=== PATIENT | female | born 1955 | race African-American/Black ===

== ENCOUNTER → 2019-10-29 | Outpatient (CLI) | payer OTHER | LOC: HYPER 13:28 | DX: T81.89XA Other complications of procedures, not elsewhere classified, initial encounter (principal); S70.01XA Contusion of right hip, initial encounter; R60.0 Localized edema; E11.9 Type 2 diabetes mellitus without complications; E66.01 Morbid (severe) obesity due to excess calories; G47.00 Insomnia, unspecified; I10 Essential (primary) hypertension; J45.909 Unspecified asthma, uncomplicated; M19.90 Unspecified osteoarthritis, unspecified site; M10.9 Gout, unspecified; F41.9 Anxiety disorder, unspecified; F32.9 Major depressive disorder, single episode, unspecified; F17.290 Nicotine dependence, other tobacco product, uncomplicated; Z98.890 Other specified postprocedural states; Z79.82 Long term (current) use of aspirin; Z68.38 Body mass index [BMI] 38.0-38.9, adult; Y92.89 Other specified places as the place of occurrence of the external cause; Y83.8 Other surgical procedures as the cause of abnormal reaction of the patient, or of later complication, without mention of misadventure at the time of the procedure ==

== ENCOUNTER → 2019-10-29 | Outpatient (CLI) | payer OTHER | LOC: SJCVCIMAG 14:12 | DX: L02.415 Cutaneous abscess of right lower limb (principal) ==

== ENCOUNTER → 2019-11-04 | Outpatient (CLI) | payer OTHER | LOC: HYPER 12:01 | DX: T81.89XD Other complications of procedures, not elsewhere classified, subsequent encounter (principal); S70.01XD Contusion of right hip, subsequent encounter; L84 Corns and callosities; I10 Essential (primary) hypertension; E11.9 Type 2 diabetes mellitus without complications; K21.9 Gastro-esophageal reflux disease without esophagitis; J45.909 Unspecified asthma, uncomplicated; G47.00 Insomnia, unspecified; R60.0 Localized edema; R41.3 Other amnesia; M19.90 Unspecified osteoarthritis, unspecified site; M10.9 Gout, unspecified; F32.9 Major depressive disorder, single episode, unspecified; F17.290 Nicotine dependence, other tobacco product, uncomplicated; F41.9 Anxiety disorder, unspecified; Z98.890 Other specified postprocedural states; Z79.82 Long term (current) use of aspirin; X58.XXXD Exposure to other specified factors, subsequent encounter; Y83.8 Other surgical procedures as the cause of abnormal reaction of the patient, or of later complication, without mention of misadventure at the time of the procedure ==

== ENCOUNTER → 2019-11-18 | Outpatient (CLI) | payer OTHER | LOC: HYPER 13:36 | PROVIDERS: ATTEND Emergency Medicine Emergency Medical Services | DX: T81.89XD Other complications of procedures, not elsewhere classified, subsequent encounter (principal); L02.415 Cutaneous abscess of right lower limb; S70.01XD Contusion of right hip, subsequent encounter; L84 Corns and callosities; R60.0 Localized edema; E11.9 Type 2 diabetes mellitus without complications; I10 Essential (primary) hypertension; M19.90 Unspecified osteoarthritis, unspecified site; M10.9 Gout, unspecified; J45.909 Unspecified asthma, uncomplicated; G47.00 Insomnia, unspecified; E66.9 Obesity, unspecified; F17.200 Nicotine dependence, unspecified, uncomplicated; F41.9 Anxiety disorder, unspecified; F32.9 Major depressive disorder, single episode, unspecified; Z79.82 Long term (current) use of aspirin; Z68.38 Body mass index [BMI] 38.0-38.9, adult; Z98.51 Tubal ligation status; Y83.8 Other surgical procedures as the cause of abnormal reaction of the patient, or of later complication, without mention of misadventure at the time of the procedure; X58.XXXD Exposure to other specified factors, subsequent encounter ==

== ENCOUNTER → 2019-12-02 | Outpatient (CLI) | payer OTHER | LOC: HYPER 09:52 | PROVIDERS: ATTEND Emergency Medicine Emergency Medical Services | DX: T81.89XD Other complications of procedures, not elsewhere classified, subsequent encounter (principal); S70.01XD Contusion of right hip, subsequent encounter; R60.0 Localized edema; E66.9 Obesity, unspecified; G47.00 Insomnia, unspecified; I10 Essential (primary) hypertension; J45.909 Unspecified asthma, uncomplicated; K21.9 Gastro-esophageal reflux disease without esophagitis; M19.90 Unspecified osteoarthritis, unspecified site; M10.9 Gout, unspecified; F41.9 Anxiety disorder, unspecified; F17.290 Nicotine dependence, other tobacco product, uncomplicated; F32.9 Major depressive disorder, single episode, unspecified; Z68.38 Body mass index [BMI] 38.0-38.9, adult; Z98.890 Other specified postprocedural states; Z79.82 Long term (current) use of aspirin; Y83.8 Other surgical procedures as the cause of abnormal reaction of the patient, or of later complication, without mention of misadventure at the time of the procedure ==

== ENCOUNTER → 2019-12-09 | Outpatient (CLI) | payer OTHER | LOC: HYPER 11:06 | PROVIDERS: ATTEND Emergency Medicine | DX: T81.89XD Other complications of procedures, not elsewhere classified, subsequent encounter (principal); S70.01XD Contusion of right hip, subsequent encounter; R60.0 Localized edema; I10 Essential (primary) hypertension; K21.9 Gastro-esophageal reflux disease without esophagitis; J45.909 Unspecified asthma, uncomplicated; G47.00 Insomnia, unspecified; E66.01 Morbid (severe) obesity due to excess calories; M10.9 Gout, unspecified; M19.90 Unspecified osteoarthritis, unspecified site; F32.9 Major depressive disorder, single episode, unspecified; Z68.38 Body mass index [BMI] 38.0-38.9, adult; Z98.890 Other specified postprocedural states; Z79.82 Long term (current) use of aspirin; F17.200 Nicotine dependence, unspecified, uncomplicated; X58.XXXD Exposure to other specified factors, subsequent encounter; Y83.8 Other surgical procedures as the cause of abnormal reaction of the patient, or of later complication, without mention of misadventure at the time of the procedure ==

== ENCOUNTER → 2019-12-24 | Outpatient (CLI) | payer OTHER | LOC: HYPER 12-16 16:21 | PROVIDERS: ATTEND Emergency Medicine | DX: T81.89XD Other complications of procedures, not elsewhere classified, subsequent encounter (principal); S70.01XD Contusion of right hip, subsequent encounter; R60.0 Localized edema; E11.9 Type 2 diabetes mellitus without complications; E66.01 Morbid (severe) obesity due to excess calories; I10 Essential (primary) hypertension; J45.909 Unspecified asthma, uncomplicated; K21.9 Gastro-esophageal reflux disease without esophagitis; M19.90 Unspecified osteoarthritis, unspecified site; M10.9 Gout, unspecified; F41.9 Anxiety disorder, unspecified; F32.9 Major depressive disorder, single episode, unspecified; F17.290 Nicotine dependence, other tobacco product, uncomplicated; F17.200 Nicotine dependence, unspecified, uncomplicated; Z68.38 Body mass index [BMI] 38.0-38.9, adult; Z79.82 Long term (current) use of aspirin; Z98.890 Other specified postprocedural states; Y83.8 Other surgical procedures as the cause of abnormal reaction of the patient, or of later complication, without mention of misadventure at the time of the procedure ==

== ENCOUNTER → 2019-12-30 | Outpatient (CLI) | payer OTHER | LOC: HYPER 10:02 | PROVIDERS: ATTEND Emergency Medicine | DX: T81.89XD Other complications of procedures, not elsewhere classified, subsequent encounter (principal); S70.01XD Contusion of right hip, subsequent encounter; R60.0 Localized edema; E66.01 Morbid (severe) obesity due to excess calories; E11.9 Type 2 diabetes mellitus without complications; I10 Essential (primary) hypertension; J45.909 Unspecified asthma, uncomplicated; K21.9 Gastro-esophageal reflux disease without esophagitis; M19.90 Unspecified osteoarthritis, unspecified site; M10.9 Gout, unspecified; F41.9 Anxiety disorder, unspecified; F17.290 Nicotine dependence, other tobacco product, uncomplicated; F32.9 Major depressive disorder, single episode, unspecified; Z68.38 Body mass index [BMI] 38.0-38.9, adult; Z98.890 Other specified postprocedural states; Z79.82 Long term (current) use of aspirin; Y83.8 Other surgical procedures as the cause of abnormal reaction of the patient, or of later complication, without mention of misadventure at the time of the procedure ==

== ENCOUNTER → 2020-01-08 | Outpatient (CLI) | payer OTHER | LOC: HYPER 10:49 | PROVIDERS: ATTEND Emergency Medicine Emergency Medical Services | DX: T81.89XD Other complications of procedures, not elsewhere classified, subsequent encounter (principal); S70.01XD Contusion of right hip, subsequent encounter; R60.0 Localized edema; I10 Essential (primary) hypertension; M19.90 Unspecified osteoarthritis, unspecified site; M10.9 Gout, unspecified; J45.909 Unspecified asthma, uncomplicated; G47.00 Insomnia, unspecified; E66.01 Morbid (severe) obesity due to excess calories; F41.9 Anxiety disorder, unspecified; F32.9 Major depressive disorder, single episode, unspecified; F17.290 Nicotine dependence, other tobacco product, uncomplicated; Z68.38 Body mass index [BMI] 38.0-38.9, adult; Z79.82 Long term (current) use of aspirin; X58.XXXD Exposure to other specified factors, subsequent encounter; Y83.8 Other surgical procedures as the cause of abnormal reaction of the patient, or of later complication, without mention of misadventure at the time of the procedure ==

== ENCOUNTER → 2020-01-13 | Outpatient (CLI) | payer OTHER | LOC: HYPER 10:33 | PROVIDERS: ATTEND Emergency Medicine Emergency Medical Services | DX: T81.89XD Other complications of procedures, not elsewhere classified, subsequent encounter (principal); L02.415 Cutaneous abscess of right lower limb; S70.01XD Contusion of right hip, subsequent encounter; L98.492 Non-pressure chronic ulcer of skin of other sites with fat layer exposed; R60.0 Localized edema; I10 Essential (primary) hypertension; E66.01 Morbid (severe) obesity due to excess calories; G47.00 Insomnia, unspecified; J45.909 Unspecified asthma, uncomplicated; M19.90 Unspecified osteoarthritis, unspecified site; M10.9 Gout, unspecified; F41.9 Anxiety disorder, unspecified; F32.9 Major depressive disorder, single episode, unspecified; F17.290 Nicotine dependence, other tobacco product, uncomplicated; Z68.38 Body mass index [BMI] 38.0-38.9, adult; Z79.82 Long term (current) use of aspirin; X58.XXXD Exposure to other specified factors, subsequent encounter; Y83.8 Other surgical procedures as the cause of abnormal reaction of the patient, or of later complication, without mention of misadventure at the time of the procedure ==

== ENCOUNTER → 2020-01-27 | Outpatient (CLI) | payer OTHER | LOC: HYPER 10:37 | PROVIDERS: ATTEND Emergency Medicine | DX: T81.89XD Other complications of procedures, not elsewhere classified, subsequent encounter (principal); S70.01XD Contusion of right hip, subsequent encounter; E11.622 Type 2 diabetes mellitus with other skin ulcer; L98.492 Non-pressure chronic ulcer of skin of other sites with fat layer exposed; E66.01 Morbid (severe) obesity due to excess calories; R60.0 Localized edema; I10 Essential (primary) hypertension; G47.00 Insomnia, unspecified; J45.909 Unspecified asthma, uncomplicated; K21.9 Gastro-esophageal reflux disease without esophagitis; M19.90 Unspecified osteoarthritis, unspecified site; M10.9 Gout, unspecified; F17.200 Nicotine dependence, unspecified, uncomplicated; F17.290 Nicotine dependence, other tobacco product, uncomplicated; F41.9 Anxiety disorder, unspecified; F32.9 Major depressive disorder, single episode, unspecified; Z98.890 Other specified postprocedural states; Z79.82 Long term (current) use of aspirin; Z68.38 Body mass index [BMI] 38.0-38.9, adult; Y83.8 Other surgical procedures as the cause of abnormal reaction of the patient, or of later complication, without mention of misadventure at the time of the procedure ==

== ENCOUNTER → 2020-03-01 | Outpatient (CLI) | payer OTHER | LOC: HYPER 10:40 | PROVIDERS: ATTEND Emergency Medicine | DX: T81.89XD Other complications of procedures, not elsewhere classified, subsequent encounter (principal); E11.622 Type 2 diabetes mellitus with other skin ulcer; L98.492 Non-pressure chronic ulcer of skin of other sites with fat layer exposed; S70.01XD Contusion of right hip, subsequent encounter; L02.415 Cutaneous abscess of right lower limb; R60.0 Localized edema; L84 Corns and callosities; I10 Essential (primary) hypertension; M19.90 Unspecified osteoarthritis, unspecified site; M10.9 Gout, unspecified; J45.909 Unspecified asthma, uncomplicated; E66.01 Morbid (severe) obesity due to excess calories; G47.00 Insomnia, unspecified; F41.9 Anxiety disorder, unspecified; F32.9 Major depressive disorder, single episode, unspecified; F17.290 Nicotine dependence, other tobacco product, uncomplicated; Z79.82 Long term (current) use of aspirin; Z98.51 Tubal ligation status; Y83.8 Other surgical procedures as the cause of abnormal reaction of the patient, or of later complication, without mention of misadventure at the time of the procedure ==

== ENCOUNTER → 2020-03-01 | Outpatient (CLI) | payer OTHER | LOC: SJCVCIMAG 12:27 | PROVIDERS: ATTEND Emergency Medicine | DX: L02.415 Cutaneous abscess of right lower limb (principal) ==

== ENCOUNTER → 2020-03-23 | Outpatient (CLI) | payer OTHER | LOC: HYPER 09:40 | PROVIDERS: ATTEND Emergency Medicine | DX: T81.89XD Other complications of procedures, not elsewhere classified, subsequent encounter (principal); L02.415 Cutaneous abscess of right lower limb; E11.622 Type 2 diabetes mellitus with other skin ulcer; L98.492 Non-pressure chronic ulcer of skin of other sites with fat layer exposed; S70.01XD Contusion of right hip, subsequent encounter; R60.0 Localized edema; E66.01 Morbid (severe) obesity due to excess calories; I10 Essential (primary) hypertension; J45.909 Unspecified asthma, uncomplicated; M19.90 Unspecified osteoarthritis, unspecified site; M10.9 Gout, unspecified; F17.200 Nicotine dependence, unspecified, uncomplicated; K21.9 Gastro-esophageal reflux disease without esophagitis; F17.290 Nicotine dependence, other tobacco product, uncomplicated; F41.9 Anxiety disorder, unspecified; F32.9 Major depressive disorder, single episode, unspecified; Z98.890 Other specified postprocedural states; Z79.82 Long term (current) use of aspirin; Z68.38 Body mass index [BMI] 38.0-38.9, adult; X58.XXXD Exposure to other specified factors, subsequent encounter ==

== ENCOUNTER 2021-03-20 15:11 | Inpatient (IN) | payer OTHER ==
[~2021-03-20] VITALS: Ht 167.6 cm; Wt 97.5 kg
--- NOTE | ~2021-03-20 | EMS ---
[address] [address] EMS Patient Care Report Name: HAYDEN MCGRAW Room #: 238-P ADM IN M.R.#: [id number] Admission: 03/20/21 Attend Phys: Tom Calderon MD Discharge: Date of : 57 Report #: [id number] THIS REPORT FOR: //name// Report Transmitted: 03/20/2021 19:51 EMS Care Summary [place], [place] Incident [id number] @ 03/20/2021 14:18 Incident Location [address] [place] [id number] Patient HAYDEN MCGRAW Female, 65 Years 1955 Patient Address [address] [place] [id number] Patient History Diabetes,Hypertension (HTN),Hyperlipidemia, Patient Medications Hawks, Morphine, Chief Complaint cardiac arrest Disposition Transported [place] Dispatch Reason Cardiac Arrest/ Transported To [facility] Narrative pt was last seen at 10 AM. Family had been trying to contact her since 11AM and finally went over to her home. They found pt in bed pulseless and non breathing. When Pumper arrives, family is attempting CPR while pt is in bed. Pt was reported to have not been feeling well since Saturday 03/17 and was told [address] [address] EMS Patient Care Report Name: HAYDEN MCGRAW Room #: 238-P [facility] IN [facility]#: [id number] Admission: 03/20/21 Attend Phys: Tom Calderon MD Discharge: Date of : 57 Report #: [id number] to go get a Covid test. When Pumper arrives, they pull pt out to living room and begin CPR. Pumper Medic has confirmed pt is in asystole on EKG, she has no resp effort. Pt body is warm, no obv signs of ledivity. They are doing CCC and bagging w/ BVM and 100% 02. iGel inserted and pt being placed on Zoll CPR board, shortly after our arrival on scene. IO obtained and ALS protocol followed. Tx as listed in flow chart. eCO2 originally @61% begins to decrease for unk reasons. Pt intubated by Car 120 Ivory, tube confirmed and eCO2 back to 52%. After 7 doses of Epi, reassessed and pt is in PEA rate 43 w/ eCO2 45. pt to ciera parts remover and cot, transport emergency w/ CPR being performed and continued tx enroute. Pt arrives at ER w/ no pulse or resp effort, CPR in progress, EKG PEA. Report to staff Initial Vitals @14:36P: 159,EtCO2: 0, @14:34P: 159,R: 9,EtCO2: 0, @14:34P: 161, @14:37P: 162, @14:33P: 161,R: 12,EtCO2: 56, @14:39P: 31,EtCO2: 0, @14:31P: 159,R: 40,EtCO2: 61, @PTAP: 147, @14:40P: 159,EtCO2: 0, @14:35P: 161,EtCO2: 0, @14:37P: 159,EtCO2: 4, @14:30P: 159,R: 35,EtCO2: 73, @14:28P: 51, @14:55P: 48,R: 12,EtCO2: 45, @15:00P: 160,EtCO2: 29, @14:42P: 161, @14:56P: 165,EtCO2: 47, @14:45R: 12,EtCO2: 50, @14:52P: 31,EtCO2: 54, @15:07P: 159,R: 6, @14:58P: 158,R: 11,EtCO2: 56, @15:06P: 155,R: 9,EtCO2: 28, @14:56P: 164,EtCO2: 45, @14:45P: 159,EtCO2: 55, @15:03P: 164,R: 10,EtCO2: 35, @15:03P: 165, @14:42P: 162,EtCO2: 0, @14:43P: 34,EtCO2: 0, @14:43BsGJ2: 0, @14:45P: 135,R: 19,EtCO2: 49, @15:10P: 159,R: 10,EtCO2: 36, @14:48P: 162,EtCO2: 36, @14:48P: 159,EtCO2: 37, [facility] [address] [place] [address] EMS Patient Care Report Name: HAYDEN MCGRAW Room #: 238-P [facility] IN M.R.#: [id number] Admission: 03/20/21 Attend Phys: Tom Calderon MD Discharge: Date of : 57 Report #: [id number] @15:07P: 161,R: 5,EtCO2: 35, @PTAP: 0,R: 0,BP: 0/0,GCS: 3,Glucose: 107,Revised Trauma: 0, Assessments @14:27MENTAL:Unresponsive,SKIN:Pale,HEENT:Head/Face: No Abnormalities,LUNG SOUNDS:General: Other,Right Upper: No Abnormalities,ABDOMEN:General: Other,Right Upper: No Abnormalities,PELVIS//GI:EXTREMITIES:Left Arm: No Abnormalities,Right Arm: No Abnormalities,Left Leg: No Abnormalities,Right Leg: No Abnormalities,PULSE:NEURO: Impression Cardiac arrest Procedures @PACKING ATTENDANT Response: Unchanged @14:34 Epinephrine 1:10 - 1 Milligrams (mg) - Intraosseous (IO) Response: Unchanged @14:37 Epinephrine 1:10 - 1 Milligrams (mg) - Intraosseous (IO) Response: Unchanged @14:42 Epinephrine 1:10 - 1 Milligrams (mg) - Intraosseous (IO) Response: Unchanged @15:03 Epinephrine 1:10 - 1 Milligrams (mg) - Intraosseous (IO) Response: Unchanged @14:48 Epinephrine 1:10 - 1 Milligrams (mg) - Intraosseous (IO) Response: Unchanged @14:56 Epinephrine 1:10 - 1 Milligrams (mg) - Intraosseous (IO) Response: Unchanged @15:07 Epinephrine 1:10 - 1 Milligrams (mg) - Intraosseous (IO) Response: Unchanged @14:45 Epinephrine 1:10 - 1 Milligrams (mg) - Intraosseous (IO) Response: Unchanged @PTAOxygen FlowRate: 15 Device: Bag Valve Mask (BVM) Response: UnchangedSucceeded @14:29 iGEL Response: UnchangedSucceeded @PTAALS Assessment Response: Unchanged @14:27 Response: UnchangedSucceeded @14:29 IV Therapy - Saline Lock 0cc (20 ga) Site: Antecubital-Left Response: UnchangedFailed @14:29 Intraosseous - Normal Saline (.9% NaCl) 300cc (EZ-IO (Blue 25mm)) Site: FH-Azwwb-Hroni Proximal Response: UnchangedSucceeded @15:10 Epinephrine 1:10 - 1 Milligrams (mg) - Intraosseous (IO) Response: Unchanged @14:29 Epinephrine 1:10 - 1 Milligrams (mg) - Intraosseous (IO) Response: Unchanged @PTA3-Lead ECG Response: Unchanged @15:00 Stretcher Response: Unchanged [facility] [address] [place] [address] EMS Patient Care Report Name: HAYDEN MCGRAW Room #: 238-P [facility] IN .R.#: [id number] Admission: 03/20/21 Attend Phys: Tom Calderon MD Discharge: Date of : 57 Report #: [id number] @14:51 Orotracheal Intubation Response: UnchangedSucceeded @14:27 ALS Assessment Response: Unchanged Timeline PACKING ATTENDANT,Response: Unchanged PACKING ATTENDANT,Oxygen FlowRate: 15 Device: Bag Valve Mask (BVM) Response: UnchangedSucceeded, PACKING ATTENDANT,ALS Assessment,Response: Unchanged PACKING ATTENDANT,3-Lead ECG,Response: Unchanged PACKING ATTENDANT,BP: / M,PULSE: 147,RR: R,SPO2: Ox,ETCO2: ,BG: ,PAIN: ,GCS: , PACKING ATTENDANT,BP: 0/0 M,PULSE: 0,RR: 0 R,SPO2: Ox,ETCO2: ,B,PAIN: ,GCS: 3, 14:16,Call Received 14:16,Dispatch Notified 14:18,Dispatched 14:19,En Route 14:26,On Scene 14:27,At Patient 14:27,Response: UnchangedSucceeded, 14:27,ALS Assessment,Response: Unchanged 14:28,BP: / M,PULSE: 51,RR: R,SPO2: Ox,ETCO2: ,BG: ,PAIN: ,GCS: , 14:29,IV Therapy - Saline Lock 0cc 20 ga Site: Antecubital-Left,Response: UnchangedFailed, 14:29,Intraosseous - Normal Saline (.9% NaCl) 300cc EZ-IO (Blue 25mm) Site: KP-Aejjn-Xxdsa Proximal,Response: UnchangedSucceeded, 14:29,Epinephrine 1:10 - 1 Milligrams (mg) - Intraosseous (IO),Response: Unchanged 14:29,iGEL Response: UnchangedSucceeded, 14:30,BP: / M,PULSE: 159,RR: 35 R,SPO2: Ox,ETCO2: 73 ,BG: ,PAIN: ,GCS: , 14:31,BP: / M,PULSE: 159,RR: 40 R,SPO2: Ox,ETCO2: 61 ,BG: ,PAIN: ,GCS: , 14:33,BP: / M,PULSE: 161,RR: 12 R,SPO2: Ox,ETCO2: 56 ,BG: ,PAIN: ,GCS: , 14:34,BP: / M,PULSE: 159,RR: 9 R,SPO2: Ox,ETCO2: 0 ,BG: ,PAIN: ,GCS: , 14:34,Epinephrine 1:10 - 1 Milligrams (mg) - Intraosseous (IO),Response: Unchanged 14:34,BP: / M,PULSE: 161,RR: R,SPO2: Ox,ETCO2: ,BG: ,PAIN: ,GCS: , 14:35,BP: / M,PULSE: 161,RR: R,SPO2: Ox,ETCO2: 0 ,BG: ,PAIN: ,GCS: , 14:36,BP: / M,PULSE: 159,RR: R,SPO2: Ox,ETCO2: 0 ,BG: ,PAIN: ,GCS: , 14:37,Epinephrine 1:10 - 1 Milligrams (mg) - Intraosseous (IO),Response: Unchanged 14:37,BP: / M,PULSE: 159,RR: R,SPO2: Ox,ETCO2: 4 ,BG: ,PAIN: ,GCS: , 14:37,BP: / M,PULSE: 162,RR: R,SPO2: Ox,ETCO2: ,BG: ,PAIN: ,GCS: , 14:39,BP: / M,PULSE: 31,RR: R,SPO2: Ox,ETCO2: 0 ,BG: ,PAIN: ,GCS: , 14:40,BP: / M,PULSE: 159,RR: R,SPO2: Ox,ETCO2: 0 ,BG: ,PAIN: ,GCS: , 14:42,Epinephrine 1:10 - 1 Milligrams (mg) - Intraosseous (IO),Response: Unchanged 14:42,BP: / M,PULSE: ,RR: R,SPO2: Ox,ETCO2: 0 ,BG: ,PAIN: ,GCS: , [address] [address] EMS Patient Care Report Name: HAYDEN MCGRAW Room #: 238-P [facility] IN .R.#: [id number] Admission: 03/20/21 Attend Phys: Tom Calderon MD Discharge: Date of : 57 Report #: [id number] 14:42,BP: / M,PULSE: 161,RR: R,SPO2: Ox,ETCO2: ,BG: ,PAIN: ,GCS: , 14:42,BP: / M,PULSE: 162,RR: R,SPO2: Ox,ETCO2: 0 ,BG: ,PAIN: ,GCS: , 14:43,BP: / M,PULSE: 34,RR: R,SPO2: Ox,ETCO2: 0 ,BG: ,PAIN: ,GCS: , 14:45,BP: / M,PULSE: 135,RR: 19 R,SPO2: Ox,ETCO2: 49 ,BG: ,PAIN: ,GCS: , 14:45,Epinephrine 1:10 - 1 Milligrams (mg) - Intraosseous (IO),Response: Unchanged 14:45,BP: / M,PULSE: 159,RR: R,SPO2: Ox,ETCO2: 55 ,BG: ,PAIN: ,GCS: , 14:45,BP: / M,PULSE: ,RR: 12 R,SPO2: Ox,ETCO2: 50 ,BG: ,PAIN: ,GCS: , 14:48,Epinephrine 1:10 - 1 Milligrams (mg) - Intraosseous (IO),Response: Unchanged 14:48,BP: / M,PULSE: 159,RR: R,SPO2: Ox,ETCO2: 37 ,BG: ,PAIN: ,GCS: , 14:48,BP: / M,PULSE: 162,RR: R,SPO2: Ox,ETCO2: 36 ,BG: ,PAIN: ,GCS: , 14:51,Orotracheal Intubation Response: UnchangedSucceeded, 14:52,BP: / M,PULSE: 31,RR: R,SPO2: Ox,ETCO2: 54 ,BG: ,PAIN: ,GCS: , 14:55,BP: / M,PULSE: 48,RR: 12 R,SPO2: Ox,ETCO2: 45 ,BG: ,PAIN: ,GCS: , 14:56,Epinephrine 1:10 - 1 Milligrams (mg) - Intraosseous (IO),Response: Unchanged 14:56,BP: / M,PULSE: 165,RR: R,SPO2: Ox,ETCO2: 47 ,BG: ,PAIN: ,GCS: , 14:56,BP: / M,PULSE: 164,RR: R,SPO2: Ox,ETCO2: 45 ,BG: ,PAIN: ,GCS: , 14:58,BP: / M,PULSE: 158,RR: 11 R,SPO2: Ox,ETCO2: 56 ,BG: ,PAIN: ,GCS: , 15:00,Stretcher,Response: Unchanged 15:00,BP: / M,PULSE: 160,RR: R,SPO2: Ox,ETCO2: 29 ,BG: ,PAIN: ,GCS: , 15:03,Depart Scene 15:03,Epinephrine 1:10 - 1 Milligrams (mg) - Intraosseous (IO),Response: Unchanged 15:03,BP: / M,PULSE: 164,RR: 10 R,SPO2: Ox,ETCO2: 35 ,BG: ,PAIN: ,GCS: , 15:03,BP: / M,PULSE: 165,RR: R,SPO2: Ox,ETCO2: ,BG: ,PAIN: ,GCS: , 15:06,BP: / M,PULSE: 155,RR: 9 R,SPO2: Ox,ETCO2: 28 ,BG: ,PAIN: ,GCS: , 15:07,Epinephrine 1:10 - 1 Milligrams (mg) - Intraosseous (IO),Response: Unchanged 15:07,BP: / M,PULSE: 161,RR: 5 R,SPO2: Ox,ETCO2: 35 ,BG: ,PAIN: ,GCS: , 15:07,BP: / M,PULSE: 159,RR: 6 R,SPO2: Ox,ETCO2: ,BG: ,PAIN: ,GCS: , 15:10,Epinephrine 1:10 - 1 Milligrams (mg) - Intraosseous (IO),Response: Unchanged 15:10,BP: / M,PULSE: 159,RR: 10 R,SPO2: Ox,ETCO2: 36 ,BG: ,PAIN: ,GCS: , 15:10,At Destination 15:33,Call Closed Disclaimer v1.1 Copyright 2020 [employer] This EMS Care Summary contains data elements from the applicable legal record (which may be displayed differently). It is designed to provide pertinent information for the following purposes: continuity of care, clinical quality, and state data reporting. The complete legal record is available to ED staff and administrators of the receiving hospital in [facility]'s Patient Tracker. All data is provided "as is."
[2021-03-20 15:48] LABS: URINE BILIRUBIN NEGATIVE (Negative); URINE BLOOD NEGATIVE (Negative); URINE CLARITY CLEAR; URINE COLOR YELLOW; URINE GLUCOSE-RANDOM* NEGATIVE (Negative); URINE KETONES NEGATIVE (Negative); URINE LEUKOCYTES-REFLEX NEGATIVE (Negative); URINE NITRITE-REFLEX NEGATIVE (Negative); URINE SPECIFIC GRAVITY 1.025 (1.005-1.035); URINE UROBILINOGEN 0.2 E.U./dl (0.2-1.0)
[2021-03-20 15:58] LABS: URINE PROTEIN (DIPSTICK) TRACE (Negative)
[2021-03-20 16:00] LABS: HEMATOCRIT 51.2 % (37.0-47.0); HEMOGLOBIN 14.5 gm/dL (12.0-15.0); MCH 29.9 pg (26.0-34.0); MCHC 28.4 g/dL (28.0-37.0); MCV 105.2 fL (80.0-100.0); PLATELET COUNT 151 thou/uL (150-400); RBC 4.87 mil/uL (4.20-5.00); RDW 18.1 % (10.5-14.5); WBC 13.1 thou/uL (4.0-11.0)
[2021-03-20 16:01] LABS: APTT 64.9 Seconds (24.5-32.8); INR 1.37; PROTIME 14.7 Seconds (10.5-12.1)
[2021-03-20 16:05] LABS: AMP/METHAMP Negative (Negative); BARBITURATES Negative (Negative); BENZODIAZEPINES POSITIVE (Negative); COCAINE Negative (Negative); METHADONE Negative (Negative); OPIATES POSITIVE (Negative); PCP Negative (Negative)
[2021-03-20 16:38] LABS: MACROCYTES 1+; PLATELET ESTIMATE NORMAL
--- NOTE | 2021-03-20 16:51 | NUR ---
VAT CONSULTED FOR CVAD. RIJ WIDELY PATENT WITH USG. 25CM 6FR TL JACC INSERTED TO 8CM EXTERNAL. BLEEDING AT SITE, PRESSURE BEING HELD DURING CPR BY STAFF. PRESSURE DRG APPLIED. STAT CXR ORDERED
--- NOTE | 2021-03-20 17:13 | NUR ---
COMPA RELEASED FOR IMMEDIATE USE CXR CONFIRMED PLACEMENT
[2021-03-20 18:20] LABS: ALBUMIN 1.7 g/dL (3.4-5.0); ANION GAP 26 mmol/L (7-16); BUN 16 mg/dL (7-18); CALCIUM 9.3 mg/dL (8.5-10.1); CHLORIDE 109 mmol/L (98-107); CO2 14 mmol/L (21-32); CREATININE 2.5 mg/dL (0.6-1.0); LIPASE 1020 U/L (73-393); SODIUM 149 mmol/L (136-145); TOTAL BILIRUBIN 0.6 mg/dL (0.2-1.0); TOTAL PROTEIN 4.8 g/dL (6.4-8.2)
[2021-03-20 18:26] LABS: GLUCOSE 30 mg/dL (74-106); POTASSIUM 6.4 mmol/L (3.5-5.1)
[2021-03-20 18:42] LABS: SGPT 8345 U/L (30-65)
[2021-03-20 18:55] LABS: SGOT 10560 U/L (15-37)
[2021-03-20 19:16] LABS: BE(vivo) -25.8 mmol/L (-2 to +3); HCO3 9.9 mmol/L (22.0-26.0); PCO2 66.9 mmHg (35.0-45.0); PO2 215.7 mmHg (80.0-100.0); pH 6.788 (7.360-7.450); sO2 98.3 % (92.0-98.0)
[2021-03-20 19:24] VITALS: BP 60/15
[2021-03-20 19:35] VITALS: BP 47/17
[2021-03-20 19:37] LABS: D-DIMER 16.45 ug/mLFEU (0.19-0.50)
--- NOTE | 2021-03-20 19:47 | NUR ---
PT ARRIVED FROM ED ACCOMPANIED BY ED NURSING STAFF AND RT HALIMA AT 1847. PER ED RN PT CODED X2 WHILE THEY STARTED TO TRANSPORT TO ICU. PT WAS BROUGHT EXTERNALLY PACED ON EPI AND LEVO GTT. DR LEE ON UNIT AT TIME OF PT ARRIVAL. DR GRIJALVA ON UNIT AT 1945.
[2021-03-20 19:54] VITALS: BP 119/15
[2021-03-20 20:30] LABS: HEMATOCRIT 40.3 % (37.0-47.0); MCH 29.5 pg (26.0-34.0); MCHC 29.5 g/dL (28.0-37.0); RBC 4.03 mil/uL (4.20-5.00)
[2021-03-20 20:31] LABS: HEMOGLOBIN 11.9 gm/dL (12.0-15.0)
[2021-03-20 20:53] LABS: ALBUMIN 1.3 g/dL (3.4-5.0); ANION GAP 20 mmol/L (7-16); BUN 17 mg/dL (7-18); CALCIUM 8.6 mg/dL (8.5-10.1); CHLORIDE 104 mmol/L (98-107); CO2 19 mmol/L (21-32); CREATININE 2.7 mg/dL (0.6-1.0); GLUCOSE 155 mg/dL (74-106); SGPT 3091 U/L (14-59); SODIUM 143 mmol/L (136-145); TOTAL BILIRUBIN 1.1 mg/dL (0.2-1.0); TOTAL PROTEIN 4.1 g/dL (6.4-8.2)
[2021-03-20 20:56] LABS: POTASSIUM 6.6 mmol/L (3.5-5.1)
--- NOTE | 2021-03-20 23:58 | NUR ---
SEE ASSESSMENT IN MEDITECH. PT UNRESPONSIVE. ON VENT 100%. ON EPI, LEVOPHED AND ADD DOPAMINE GTT-AND STILL ONLY ABLE TO DOPPLE FEMEROL PULSE. BLEEDING FROM LINES, ETT, MOUTH, OGT. NO UO . DR GRIJALVA HERE PLACING LINE, DR HERNANDEZ HERE WELL. PACED PER ZOLL-UNABLE TO AUSCULTATE HEARTBEAT. NO WAVEFORM VIA ART LINE--CODE BLUE CALLED. SEE FLOWSHEET
== END 2021-03-20 20:50 | DRG 208 ==
LOC: ER 15:11 → EROBS 18:18 → ICU 18:56
PROVIDERS: Emergency Medicine; ADMIT Internal Medicine; ATTEND Internal Medicine
PROC: 5A12012 Performance of Cardiac Output, Single, Manual (ICD-10-PCS; principal; 2021-03-20)
PROC: 0BH17EZ Insertion of Endotracheal Airway into Trachea, Via Natural or Artificial Opening (ICD-10-PCS; principal; 2021-03-20)
PROC: 03HY32Z Insertion of Monitoring Device into Upper Artery, Percutaneous Approach (ICD-10-PCS; principal; 2021-03-20)
PROC: 02HV33Z Insertion of Infusion Device into Superior Vena Cava, Percutaneous Approach (ICD-10-PCS; principal; 2021-03-20)
PROC: 5A1935Z Respiratory Ventilation, Less than 24 Consecutive Hours (ICD-10-PCS; principal; 2021-03-20)
DX: J96.00 Acute respiratory failure, unspecified whether with hypoxia or hypercapnia (principal); K72.00 Acute and subacute hepatic failure without coma; G93.41 Metabolic encephalopathy; G93.1 Anoxic brain damage, not elsewhere classified; I46.9 Cardiac arrest, cause unspecified; Z20.822 Contact with and (suspected) exposure to COVID-19; E11.9 Type 2 diabetes mellitus without complications; G89.29 Other chronic pain; J45.909 Unspecified asthma, uncomplicated; R57.0 Cardiogenic shock
CPT/HCPCS: 10078; 65040; 85026